=== PATIENT | female | born 1985 | race Caucasian/White ===

== ENCOUNTER 2016-09-21 12:16 | Emergency (ER) | payer OTHER ==
[2016-09-21 12:38] VITALS: BP 141/91
--- NOTE | 2016-09-21 14:24 | EDM.PDOC ---
ED HPI GENERAL MEDICAL PROBLEM - General Chief Complaint: Abdominal Pain Stated Complaint: ABDOMINAL PAIN Time Seen by Provider: 09/21/16 13:13 Source of Information: Reports: Patient History Limitations: Reports: No Limitations - History of Present Illness INITIAL COMMENTS - FREE TEXT/NARRATIVE: 30-year-old female presents for evaluation treatment of severe pelvic pain. Patient reports that the pelvic pain began around 10 AM this morning. She states that she had intercourse this morning and then developed severe pelvic pain afterwards. She states that since intercourse it has been improving but has not fully resolved. Patient denies any fevers, cough, cold symptoms, nausea , vomiting, dysuria or hematuria. Patient reports that the pain is tolerable when she is laying still. Severely worsens with moving. Patient has an IUD in place. She states there is a chance issues as she has had failed control previously. Does not have a menstrual cycle on IUD. Patient has no history of any ovarian cyst. Patient reports that she is currently using [id number] medications for a yeast infection. Reports that the vaginal itching and other symptoms have resolved with the [id number] medication. Location: Reports: Pelvis lower groin area/"inner abdomen" Pain Score (Numeric/FACES): 5 - Related Data Allergies Allergy/AdvReac Type Severity Reaction Status Date / Time No Known Allergies Allergy Verified 09/21/16 12:38 Home Meds: Home Meds Lactose-Reduced Food [Protein Nutritional Shake] 1 dose PO BID 09/21/16 [History ] Past Medical History - Past Health History Medical/Surgical History: Denies Medical/Surgical History Respiratory History: Reports: Asthma Psychiatric History: Reports: Anxiety, Bipolar, Depression Social & Family History - Family History Family Medical History: Noncontributory - Tobacco Use Smoking Status *Q: Current Every Day Smoker Years of Tobacco use: 1 Packs/Tins Daily: 0.2 - Caffeine Use Caffeine Use: Reports: Energy Drinks, Soda - Recreational Drug Use Recreational Drug Use: No ED ROS GENERAL - Review of Systems Review Of Systems: See Below Constitutional: Denies: Fever HEENT: Denies: Ear Pain, Throat Pain Respiratory: Denies: Cough GI/Abdominal: Denies: Abdominal Pain, Nausea, Vomiting : Reports: Pain (pelvis). Denies: Dysuria, Hematuria ED EXAM, RENAL/ - Physical Exam Exam: See Below Exam Limited By: No Limitations General Appearance: Alert, WD/WN, Moderate Distress Respiratory/Chest: No Respiratory Distress, Lungs Clear, Normal Breath Sounds Cardiovascular: Normal Peripheral Pulses, Regular Rate, Rhythm, No Murmur GI/Abdominal: Normal Bowel Sounds, Soft, Non-Tender (Female) Exam: Normal External Exam, Normal Speculum Exam Neurological: Alert, Oriented, Normal Cognition, Abnormal Gait (patient is walking hunched over due to the pain) Psychiatric: Normal Affect, Normal Mood Skin Exam: Warm, Dry, Normal Color Course - Vital Signs Last Recorded V/S: Last Vital Signs Temp 36.7 C 09/21/16 12:33 Pulse 81 09/21/16 12:33 Resp 18 09/21/16 12:33 BP 141/91 H 09/21/16 12:33 Pulse Ox 100 09/21/16 12:33 - Orders/Labs/Meds Labs: Laboratory Tests 09/21/16 09/21/16 09/21/16 Range/Units 13:20 13:20 13:50 WBC 7.30 (3.98-10.04) K/mm3 RBC 5.10 (3.98-5.22) M/mm3 Hgb 15.3 (11.2-15.7) gm/L Hct 45.2 H (34.1-44.9) % MCV 88.6 (79.4-94.8) fl MCH 30.0 (25.6-32.2) pg MCHC 33.8 (32.2-35.5) g/dl RDW Std Deviation 40.2 (36.4-46.3) fL Plt Count 227 (182-369) K/mm3 MPV 9.9 (9.4-12.3) fl Neut % (Auto) 64.1 (34.0-71.1) % Lymph % (Auto) 28.5 (19.3-51.7) % [place] % (Auto) 4.9 (4.7-12.5) % Eos % (Auto) 2.3 (0.7-5.8) Baso % (Auto) 0.1 (0.1-1.2) % Neut # (Auto) 4.67 (1.56-6.13) K/mm3 Lymph # (Auto) 2.08 (1.18-3.74) K/mm3 [place] # (Auto) 0.36 (0.24-0.36) K/mm3 Eos # (Auto) 0.17 (0.04-0.36) K/mm3 Baso # (Auto) 0.01 (0.01-0.08) K/mm3 Manual Slide Review Not Reportable Sodium 141 (136-145) mEq/L Potassium 3.7 (3.5-5.1) mEq/L Chloride 105 (98-107) mEq/L Carbon Dioxide 28 (21-32) mEq/L Anion Gap 11.7 (5-15) BUN 10 (7-18) mg/dL Creatinine 0.8 (0.55-1.02) mg/dL Est Cr Clr Drug Dosing 92.53 mL/min Estimated GFR (MDRD) > 60 (>60) mL/min BUN/Creatinine Ratio 12.5 L (14-18) Glucose 91 (74-106) mg/dL Calcium 8.8 (8.5-10.1) mg/dL Total Bilirubin 0.7 (0.2-1.0) mg/dL AST 19 (15-37) U/L ALT 27 (14-59) U/L Alkaline Phosphatase 66 (46-116) U/L C-Reactive Protein < 0.2 (<1.0) mg/dL Total Protein 7.2 (6.4-8.2) g/dl Albumin 3.7 (3.4-5.0) g/dl Globulin 3.5 gm/dL Albumin/Globulin Ratio 1.1 (1-2) HCG, Quant < 1.0 mIU/mL Urine Color Light yellow (Yellow) Urine Appearance Clear (Clear) Urine pH 7.0 (5.0-8.0) Ur Specific [place] 1.020 (1.005-1.030) Urine Protein Negative (Negative) Urine Glucose (UA) Negative (Negative) Urine Ketones Negative (Negative) Urine Occult Blood Negative (Negative) Urine Nitrite Negative (Negative) Urine Bilirubin Negative (Negative) Urine Urobilinogen 0.2 (0.2-1.0) Ur Leukocyte Esterase Negative (Negative) Urine RBC Not seen (0-5) /hpf Urine WBC Not seen (0-5) /hpf Urine WBC Clumps Not seen (NOT SEEN) /hpf Ur Epithelial Cells 0-5 (0-5) /hpf Urine Bacteria Rare (FEW) /hpf Urine Mucus Not seen (FEW) /hpf Urine Yeast Not seen (NOT SEEN) - Radiology Interpretation Free Text/Narrative:: Transvaginal ultrasound impression per [facility]: 1. Probable right ovarian hemorrhagic cyst. 2. Apparent IUD. Low-lying position not excludable. - Re-Assessments/Exams Free Text/Narrative Re-Assessment/Exam: 09/21/16 15:00 Labs returned. White blood cell count 7.30, hemoglobin 15.3 and platelets are 227. Sodium is 141, potassium 3.7 chloride 105. Anion gap 11.7. CRP is within normal limits at less than 0.2. HCG is negative at less than 1.0. UA Is negative for any blood, leukocytes, nitrites, ketones reporting. Feel the patient likely has an ovarian cyst. We will order transvaginal ultrasound to further evaluate. 09/21/16 16:34 wet prep negative for yeast, clue cells and trich. Offered STD testing the and patient declined. I reviewed the ultrasound results with the patient. She is hemodynamically stable and her hemoglobin is within normal limits. I do not feel that she needs surgery for her hemorrhagic cystitis at this time. We will have her followed closely with either her primary care provider or a local ELECTRIC RE[employer]IGERATOR SERVICER here. Patient sees an ELECTRIC REFRIGERATOR SERVICER provider in [place]. Offered medication for pain. Patient declined. She would like to utilize [id number] Tylenol and Motrin. She was instructed to return to the ER immediately for symptoms change or worsen. Departure - Departure Time of Disposition: 16:34 Disposition: Home, Self-Care 01 Condition: Fair Clinical Impression: Hemorrhagic cyst of right ovary - Discharge Information Instructions: Ovarian Cyst, [id number] Referrals: PCP,None [Primary Care Provider] - Eboni Sanz MD [Ordering Only Provider] - Aniceto Griffin MD [Physician] - Forms: ED Department Discharge Additional Instructions: Follow-up with Ob Friday or Friday this week. If you are unable to see your normal OB recommend Dr. Griffin or Dr. Huntley at [facility] in [place]. Call to schedule with one of them. OTC tylenol or motrin as needed for pain relief. May try heat for additional pain relief. Rest. Drink plenty of fluids. Please return to the ER should your symptoms change or worsen.
--- NOTE | 2016-09-23 14:38 | US ---
Pelvic ultrasound: Multiple real-time images were obtained transvaginally. Comparison: No previous pelvic ultrasound. Findings: Hyperechoic area is seen within the lower body and lower uterine uterine segment likely representing IUD. No myometrial abnormality is seen. Endometrial thickness is 4 mm. Complex area noted within the right ovary measuring 2.2 cm which is felt to be physiologic. Follicles are seen within the ovaries. Small amount of free fluid seen which is felt to be incidental. Impr measurements: Uterus: Length 7.2 cm, AP height 3.9 cm, transverse width 5.0 cm Right ovary: 4.1 x 2.5 x 2.9 cm Left ovary: 2.4 x 1.2 x 1.2 cm Impression: 1. Presumed IUD within the lower endometrial cavity. This appears lower in position than usually expected for IUD. 2. Complicated 2.2 cm cyst within the right ovary which is felt to be incidental and physiologic. 3. Other incidental findings. Diagnostic code #3 I agree with preliminary report issued by [facility] ([facility] preliminary report dictated on 09/21/16, 5:04 PM Central Time)
== END 2016-09-21 16:50 | disposition home or self-care (01) ==
LOC: JD.ED 12:16
DX: N83.201 Unspecified ovarian cyst, right side (principal); F17.210 Nicotine dependence, cigarettes, uncomplicated; F41.9 Anxiety disorder, unspecified; F31.9 Bipolar disorder, unspecified; J45.909 Unspecified asthma, uncomplicated
CPT/HCPCS: 36415; 76830; 76830-26; 80053; 81001; 84702; 85025; 86140; 87210; 87808; 99283; 99284-25

== ENCOUNTER 2019-07-04 14:44 | Emergency (ER) | payer BC, OTHER ==
[2019-07-04 15:19] VITALS: BP 142/93; PULSE 65
[2019-07-04] MEDS ORDERED: Diphtheria,Pertussis(Acell),Tetanus Vaccine 0.5 ML Syringe IM ONE (15:27)
[2019-07-04] MEDS ORDERED: Lidocaine 1% 10 ML MDV INJECT ONE (15:28)
--- NOTE | 2019-07-04 15:33 | EDM.PDOC ---
ED HPI GENERAL MEDICAL PROBLEM - General Chief Complaint: Laceration Stated Complaint: RIGHT PALM LACERATION Time Seen by Provider: 07/04/19 15:18 Source of Information: Reports: Patient, RN Notes Reviewed History Limitations: Reports: No Limitations - History of Present Illness INITIAL COMMENTS - FREE TEXT/NARRATIVE: Patient is a 33-year-old female who presents to the ED for the evaluation of a right palm laceration. This does involve her thenar eminence of her right hand. The laceration itself is linear, fairly superficial and non-gaping, runs in a vertical fashion, and is roughly 3 cm in length. Patient states she was at home, and went to open some of her older windows on her home, when her head went through the glass instead. Patient is not sure of her last tetanus vaccination as well. Patient is not having any numbness or tingling distal to the injury, and she can move all fingers and wrist in range of motion. Right Hand Pain Score (Numeric/FACES): 5 - Related Data Allergies Allergy/AdvReac Type Severity Reaction Status Date / Time No Known Allergies Allergy Verified 07/04/19 15:18 Home Meds: Home Meds Lactose-Reduced Food [Protein Nutritional Shake] 1 dose PO BID 09/21/16 [History ] Melatonin 5 mg PO BEDTIME 07/04/19 [History] Past Medical History Cardiovascular History: Reports: Hypertension Respiratory History: Reports: Asthma Psychiatric History: Reports: Anxiety, Bipolar, Depression - Infectious Disease History Infectious Disease History: Reports: Chicken Pox - Past Surgical History Female Surgical History: Reports: Tubal Ligation Social & Family History - Family History Family Medical History: Noncontributory - Tobacco Use Smoking Status *Q: Former Smoker Used Tobacco, but Quit: Yes Month/Year Tobacco Last Used: 01/2019 - Caffeine Use Caffeine Use: Reports: Energy Drinks - Recreational Drug Use Recreational Drug Use: No ED ROS GENERAL - Review of Systems Review Of Systems: Comprehensive ROS is negative, except as noted in HPI. ED EXAM, SKIN/RASH Exam: See Below Exam Limited By: No Limitations General Appearance: Alert, WD/WN, No Apparent Distress Respiratory/Chest: No Respiratory Distress, Lungs Clear, Normal Breath Sounds, No Accessory Muscle Use, Chest Non-Tender Cardiovascular: Normal Peripheral Pulses, Regular Rate, Rhythm, No Murmur Peripheral Pulses: 3+: Radial (L), Radial (R) Neurological: Alert, Oriented, CN II-XII Intact (grossly), Normal Cognition, No Motor/Sensory Deficits Psychiatric: Normal Affect, Normal Mood Skin: Warm, Dry, Normal Color, No Rash, Wound/Incision (3 cm linear laceration to the right thenar eminence of the patient's hand. This runs vertical in nature, fairly superficial, non-gaping, not actively bleeding. No neurovascular injury is suspected at this time) ED SKIN PROCEDURES - Laceration/Wound Repair Right Anterior Proximal Hand Appearance: Superficial, Linear, Clean Distal NVT: Neuro & Vascular Intact, No Tendon Injury Anesthetic Type: Local Local Anesthesia - Lidocaine (Xylocaine): 1% Plain Local Anesthetic Volume: 5cc Skin Prep: Chlorhexidine (Hibiciens), Saline Closed with: Sutures Lac/Wound length In cm: 3 Suture Size: 4-0 # of Sutures: 5 Suture Type: Prolene, Interrupted, Simple Sterile Dressing Applied: Nurse Tetanus Status Addressed: Yes (updated at today's visit) Complications: No Course - Vital Signs Last Recorded V/S: Last Vital Signs Temp 98.2 F 07/04/19 15:16 Pulse 65 07/04/19 15:16 Resp 19 07/04/19 15:16 BP 142/93 H 07/04/19 15:16 Pulse Ox 100 07/04/19 15:16 - Orders/Labs/Meds Orders: Active Orders 24 hr Category Date Time Status Vaccines to be Administered [RC] PER UNIT ROUTINE Care 07/04/19 15:28 Ordered Meds: Medications Discontinued Medications Generic Name Dose Route Start Last Admin Trade Name Freq PRN Reason Stop Dose Admin Diphtheria/Tetanus/Acell Pertussis 0.5 ml 07/04/19 15:27 07/04/19 15:36 Adacel IM 07/04/19 15:28 0.5 ml .ONCE ONE Administration Lidocaine HCl 10 ml 07/04/19 15:28 07/04/19 15:36 Xylocaine 1% INJECT 07/04/19 15:29 10 ml ONETIME ONE Administration Departure - Departure Time of Disposition: 15:31 Disposition: Home, Self-Care 01 Condition: Fair Clinical Impression: Laceration of right palm without complication Qualifiers: Encounter type: initial encounter Qualified Code(s): S61.411A - Laceration without foreign body of right hand, initial encounter - Discharge Information *PRESCRIPTION DRUG MONITORING PROGRAM REVIEWED*: No *COPY OF PRESCRIPTION DRUG MONITORING REPORT IN PATIENT [facility]: No Instructions: Sutured Wound Care, [id number] Referrals: PCP,None [Primary Care Provider] - Forms: ED Department Discharge Additional Instructions: You have been evaluated in the ED for your laceration. Sutures will need to stay in for 10-14 days (07/13-07/17). You may return to the ED or any clinic for removal. Please keep this area clean and dry, you may cleanse with regular soap and water. No vigorous scrubbing. Watch out for signs of infection like increased redness, swelling, pain at the laceration site, or if you should develop any fevers or chills. Please return to ED if your symptoms change or worsen. Sepsis Event Note - Evaluation Sepsis Screening Result: No Definite Risk - Focused Exam Vital Signs: Vital Signs Temp Pulse Resp BP Pulse Ox 07/04/19 15:16 98.2 F 65 19 142/93 H 100 Date Exam was Performed: 07/04/19 Time Exam was Performed: 16:21 - My Orders Last 24 Hours: My Active Orders 07/04/19 15:28 Vaccines to be Administered [RC] PER UNIT ROUTINE - Assessment/Plan Last 24 Hours: My Active Orders 07/04/19 15:28 Vaccines to be Administered [RC] PER UNIT ROUTINE
== END 2019-07-04 16:27 | disposition home or self-care (01) ==
LOC: JD.ED 14:44
DX: S61.411A Laceration without foreign body of right hand, initial encounter (principal); Z23 Encounter for immunization; Z87.891 Personal history of nicotine dependence; F31.9 Bipolar disorder, unspecified; F41.9 Anxiety disorder, unspecified; I10 Essential (primary) hypertension; J45.909 Unspecified asthma, uncomplicated; W25.XXXA Contact with sharp glass, initial encounter; Y92.009 Unspecified place in unspecified non-institutional (private) residence as the place of occurrence of the external cause
CPT/HCPCS: 12002; 90471; 90715; 99282; J2001

== ENCOUNTER 2020-05-29 12:04 | Emergency (ER) | payer BC ==
[2020-05-29] MEDS ORDERED: diphenhydrAMINE 50 MG/ML SDV IVPUSH PRN (13:06)
[2020-05-29] MEDS ORDERED: EPINEPHrine 1 MG/ML SDV IM PRN (13:06)
[2020-05-29] MEDS ORDERED: Casirivimab 1,200 MG, Imdevimab 1,200 MG in Sodium Chloride 0.9% 230 ML IV ONE (13:06)
[2020-05-29] MEDS ORDERED: methylPREDNISolone Sodium Succinate 125 MG/2 ML SDV IVPUSH PRN (13:06)
[2020-05-29] MEDS ORDERED: Famotidine 20 MG/2 ML SDV IVPUSH PRN (13:06)
[2020-05-29] MEDS ORDERED: hydrALAZINE 20 MG/ML SDV IVPUSH ONE (13:07)
--- NOTE | 2020-05-29 13:07 | EDM.PDOC ---
ED HPI GENERAL MEDICAL PROBLEM - General Chief Complaint: Flank Pain Stated Complaint: COVID SX Time Seen by Provider: 05/29/20 12:55 Source of Information: Reports: Patient History Limitations: Reports: No Limitations - History of Present Illness INITIAL COMMENTS - FREE TEXT/NARRATIVE: 34-year-old female attends the ED with recent diagnosis of COVID-19 illness. Chief complaint is that of diffuse headache ache in the back of her neck low back and thighs. She has a very minimal dry cough. Mild nasal congestion. She has retention of first sense of taste and smell. All of her children have been ill with Covid-like 19 illness for the last week with mostly nasal congestion loss of sense of taste and smell. Her is also diagnosed with COVID-19 illness 2 days ago and he was exposed to a coworker with COVID-19 illness that is suspect case that introduced it to her family. She has had symptoms dating back to May 25. So is her . Overall she does not feel all that bad. Initially had more of a headache and diffuse myalgias with some chills but no defined fever. No GI symptoms of nausea vomiting or diarrhea. Fatigue would be her chief complaint. Onset: Gradual Onset Date: 05/25/20 (Feels she developed for symptoms of COVID-19 illness last , May 25.) Duration: Day(s):, Getting Worse Location: Reports: Head, Neck (Mild headache), Back ( pain in her neck musculature low back musculature and thighs.) Quality: Reports: Ache Severity: Moderate Improves with: Reports: None (Aches such as ibuprofen or Aleve or Tylenol.) Worsens with: Reports: Movement (Stiven and movement seems to make) Context: Reports: Other (Of a 19 illness with fatigue generalized myalgia in her large muscles). Denies: Activity, Exercise ( the pain a little worse.), Lifting, Sick Contact, Trauma Associated Symptoms: Reports: Cough, Fever/Chills, Loss of Appetite, Malaise (Minimal cough.), Weakness (Chief complaint would be fatigue.), Other (No diarrhea). Denies: Confusion, Chest Pain, cough w sputum, Diaphoresis, Headaches, Nausea/Vomiting (Initial onset of illness for 3 days.), Rash, Seizure, Shortness of Breath, Syncope Treatments INCOME TAX EXPERT: Reports: Other (see below) Bilateral Flank Pain Score (Numeric/FACES): 6 - Related Data Allergies Allergy/AdvReac Type Severity Reaction Status Date / Time No Known Allergies Allergy Verified 05/29/20 12:31 Home Meds: Home Meds Aspirin [[place] Aspirin] 81 mg PO DAILY 05/29/20 [History] Valsartan 160 mg PO DAILY #30 tablet 05/29/20 [Rx] amLODIPine Besylate [Amlodipine Besylate] 10 mg PO DAILY #30 tablet 05/29/20 [Rx] Past Medical History - Past Health History Medical/Surgical History: Denies Medical/Surgical History Cardiovascular History: Reports: Hypertension (Already controlled. Used to be on medication but has not been on medication for several months.) Respiratory History: Reports: Asthma Psychiatric History: Reports: Anxiety, Bipolar, Depression - Infectious Disease History Infectious Disease History: Reports: Chicken Pox, Novel Coronavirus - Past Surgical History Female Surgical History: Reports: Tubal Ligation Social & Family History - Family History Family Medical History: No Pertinent Family History - Tobacco Use Tobacco Use Status *Q: Former Tobacco User Used Tobacco, but Quit: Yes Month/Year Tobacco Last Used: 2 years ago - Caffeine Use Caffeine Use: Reports: Coffee - Recreational Drug Use Recreational Drug Use: No - Living Situation & Occupation Living situation: Reports: Occupation: Unemployed (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 They are ages 1514 9 and 8.) ED ROS GENERAL - Review of Systems Review Of Systems: See Below Constitutional: Reports: Fever, Chills, Malaise, Weakness, Fatigue, Decreased Appetite HEENT: Reports: Glasses Respiratory: Reports: Shortness of Breath, Cough (Very mildly short of breath.). Denies: Wheezing, Pleuritic Chest Pain, Sputum, Hemoptysis ( Nonproductive cough again very minimal) Cardiovascular: Reports: Blood Pressure Problem. Denies: Chest Pain ED EXAM,LOWER BACK PAIN/INJURY - Physical Exam Exam: See Below Exam Limited By: No Limitations General Appearance: Alert, WD/WN, No Apparent Distress, Other (Temperature is 36.2 with heart rate of 86 and sinus respiratory rate 16 with O2 sats of 98% room air BP is elevated 176/133.) Eye Exam: Bilateral Eye: Normal Inspection (No blepharal pallor or scleral icterus.), PERRL Ears: Normal TMs Throat/Mouth: Normal Oropharynx, Other (Tongue is slightly dry.) Head: Atraumatic, Normocephalic (No oropharyngeal infection.) Neck: Normal Inspection, Supple, Non-Tender, Full Range of Motion. No: Lymphadenopathy (L), Lymphadenopathy (R) Respiratory/Chest: No Respiratory Distress, Lungs Clear, Normal Breath Sounds Cardiovascular: Normal Peripheral Pulses, Regular Rate, Rhythm, No Edema, No Gallop, No Murmur, No Rub GI/Abdominal: Normal Bowel Sounds, Soft, Non-Tender, No Organomegaly, No Mass, Pelvis Stable, Other (Moderately obese. Abdominal girth limits ability to palpate solid organs.) Back Exam: Normal Inspection, Full Range of Motion. No: CVA Tenderness (L), CVA Tenderness (R) Extremities: Normal Inspection, Normal Range of Motion, Non-Tender, No Pedal Edema Neurological: Alert, Normal Mood/Affect, Normal Dorsiflexion, CN II-XII Intact, Oriented x 3 Psychiatric: Normal Affect, Normal Mood Skin Exam: Warm, Dry, Intact, Normal Color, No Rash Course - Vital Signs Last Recorded V/S: Last Vital Signs Temp 36.2 C 05/29/20 17:05 Pulse 102 H 05/29/20 17:05 Resp 16 05/29/20 17:05 BP 171/102 H 05/29/20 17:05 Pulse Ox 99 05/29/20 17:05 - Orders/Labs/Meds Labs: Laboratory Tests 05/29/20 05/29/20 05/29/20 Range/Units 13:57 13:57 13:57 WBC 6.97 (3.98-10.04) K/mm3 RBC 5.73 H (3.98-5.22) M/mm3 Hgb 15.3 (11.2-15.7) gm/dl Hct 47.7 H (34.1-44.9) % MCV 83.2 D (79.4-94.8) fl MCH 26.7 (25.6-32.2) pg MCHC 32.1 L (32.2-35.5) g/dl RDW Std Deviation 41.5 (36.4-46.3) fL Plt Count 327 D (182-369) K/mm3 MPV 9.1 L (9.4-12.3) fl Neut % (Auto) 55.6 (34.0-71.1) % Lymph % (Auto) 35.6 (19.3-51.7) % [place] % (Auto) 6.7 (4.7-12.5) % Eos % (Auto) 1.7 (0.7-5.8) Baso % (Auto) 0.3 (0.1-1.2) % Neut # (Auto) 3.87 (1.56-6.13) K/mm3 Lymph # (Auto) 2.48 (1.18-3.74) K/mm3 [place] # (Auto) 0.47 H (0.24-0.36) K/mm3 Eos # (Auto) 0.12 (0.04-0.36) K/mm3 Baso # (Auto) 0.02 (0.01-0.08) K/mm3 Hemoglobin A1c ( - 5.6) % Magnesium 2.1 (1.8-2.4) mg/dl Lactate Dehydrogenase 190 (81-234) U/L Troponin I < 0.017 (0.00-0.056) ng/mL C-Reactive Protein 1.3 H* (<1.0) mg/dL NT-Pro-B Natriuret Pep 38 (0-125) pg/mL 05/29/20 Range/Units 13:57 WBC (3.98-10.04) K/mm3 RBC (3.98-5.22) M/mm3 Hgb (11.2-15.7) gm/dl Hct (34.1-44.9) % MCV (79.4-94.8) fl MCH (25.6-32.2) pg MCHC (32.2-35.5) g/dl RDW Std Deviation (36.4-46.3) fL Plt Count (182-369) K/mm3 MPV (9.4-12.3) fl Neut % (Auto) (34.0-71.1) % Lymph % (Auto) (19.3-51.7) % [place] % (Auto) (4.7-12.5) % Eos % (Auto) (0.7-5.8) Baso % (Auto) (0.1-1.2) % Neut # (Auto) (1.56-6.13) K/mm3 Lymph # (Auto) (1.18-3.74) K/mm3 [place] # (Auto) (0.24-0.36) K/mm3 Eos # (Auto) (0.04-0.36) K/mm3 Baso # (Auto) (0.01-0.08) K/mm3 Hemoglobin A1c 5.8 H ( - 5.6) % Magnesium (1.8-2.4) mg/dl Lactate Dehydrogenase (81-234) U/L Troponin I (0.00-0.056) ng/mL C-Reactive Protein (<1.0) mg/dL NT-Pro-B Natriuret Pep (0-125) pg/mL Meds: Medications Discontinued Medications Generic Name Dose Route Start Last Admin Trade Name Freq PRN Reason Stop Dose Admin Amlodipine Besylate 10 mg 05/29/20 14:33 05/29/20 15:26 Norvasc PO 05/29/20 14:34 10 mg ONETIME ONE Administration Diphenhydramine HCl 50 mg 05/29/20 13:06 Benadryl IVPUSH ONETIME PRN hypersensitivity reaction Enalaprilat 1.25 mg 05/29/20 14:32 05/29/20 15:25 Vasotec Iv IVPUSH 05/29/20 14:33 1.25 mg ONETIME ONE Administration Epinephrine HCl 0.3 mg 05/29/20 13:06 Adrenalin IM ONETIME PRN hypersensitivity reaction Famotidine 20 mg 05/29/20 13:06 Pepcid IVPUSH ONETIME PRN hypersensitivity reaction Hydralazine HCl 10 mg 05/29/20 13:07 05/29/20 15:16 Apresoline IVPUSH 05/29/20 13:08 10 mg ONETIME ONE Administration Non-Formulary Medication 1,200 250 mls @ 250 mls/hr 05/29/20 13:06 05/29/20 13:53 mg/ Non-Formulary Medication IV 05/29/20 14:05 250 mls/hr 1,200 mg/ Sodium Chloride ONETIME ONE Administration Methylprednisolone Sodium Succinate 125 mg 05/29/20 13:06 Solu-Medrol IVPUSH ONETIME PRN hypersensitivity reaction Sodium Chloride 30 ml 05/29/20 13:15 05/29/20 16:05 Saline Flush FLUSH 30 ml ASDIRECTED DRE Administration - Radiology Interpretation Free Text/Narrative:: 34-year-old female presents to the ED with recent diagnosis of COVID-19 illness. She believes she has been sick for about 4 to 5 days. All of her four children seem to have colds and nasal congestion at about the same time as her came down with illness last week. She has mild headache at present. Loss of appetite but no diarrhea or nausea or vomiting. Large muscle groups ache such as back of her head low back and thighs. Her risk factors for your exacerbation of COVID-19 illness are obesity with a BMI of 49.8 and uncontrolled hypertension. She is therefore a candidate for Regeneron and she is willing to accept this medication and has read the information sheet provided to her. I have spoke with the patient Wendy Marin to provide information about Regeneron treatment for herself. I offered herself in the [place] Regeneron fax sheet to read and review. Stated the drug has been approved by an emergency use authorization process but is not been fully vetted by the FDA. The patient meets the EUA requirements. I discussed there are other potential treatment options that are currently not FDA approved to treat COVID-19 illness. Offered opportunity ask questions and all questions were answered. The patient Wendy Marin voiced understanding and agreed to proceed with treatment for herself. - Re-Assessments/Exams Free Text/Narrative Re-Assessment/Exam: 05/29/20 13:42 chest x-ray done portably reveals heart size to me and mediastinum are normal. Lungs are clear with no acute parenchymal changes. No acute osseous findings either. No previous x-rays are available for comparison purposes. 05/29/20 14:33 Blood pressure remains markedly elevated at 170/105 even after hydralazine 10 mg IV. I am therefore going to give her Vasotec 1.25 mg IV and amlodipine 10 mg orally. Otology is back revealing a normal white count at 6.97. The differential shows 55.6% neutrophils. Hemoglobin is 15.3 with hematocrit of 47.7 platelet count 327,000 05/29/20 14:58 Magnesium is 2.1 LDH is 190 troponin I is less than 0.017 C- reactive protein 1.3 with a BNP of 38. 02/22/21 16:50: Patient was complaining to the nurse that she had developed some right anterior chest wall pain. She did not have it before she came into the ED. On examination lungs sound clear. She has point tenderness over palpation of the rib #3 4 and 5 in the midclavicular line on the right side. This will be treated conservatively with Aleve 2 tablets every 8 hours to reduce pain and inflammation.She has otherwise tolerated Regeneron IV therapy with no problems.She will return to care if dyspnea worsens. Departure - Departure Time of Disposition: 16:54 Disposition: Home, Self-Care 01 Condition: Fair Clinical Impression: COVID-19, Uncontrolled hypertension, stage 1 - Discharge Information *PRESCRIPTION DRUG MONITORING PROGRAM REVIEWED*: Not Applicable *COPY OF PRESCRIPTION DRUG MONITORING REPORT IN PATIENT [facility]: Not Applicable Prescriptions: amLODIPine Besylate [Amlodipine Besylate] 10 mg PO DAILY #30 tablet Valsartan 160 mg PO DAILY #30 tablet Instructions: COVID-19 Frequently Asked Questions, What You Should Know About COVID-19 to Protect Yourself and Others - CDC, COVID-19: Quarantine vs. Isolation - CDC, Managing Your Hypertension Referrals: PCP,None [Primary Care Provider] - Forms: ED Department Discharge Additional Instructions: Evaluation in the emergency room today in regards to recent diagnosis of COVID- 19 illness which is afflicted your entire family. You were at slightly higher increased risk of developing more severe disease due to uncontrolled high blood pressure and your weight. For this reason you are a candidate for Regeneron which is to monoclonal antibodies that give you immediate antibodies to the COVID-19 virus in the hopes that will stave off more serious disease. Chest x- ray done through the ED today was completely normal. Labs done through the ED were also within normal limits as well. Your blood pressure proved to be a bit of a problem and bringing under control. You received hydralazine 10 mg IV followed by Vasotec 1.25 mg IV and amlodipine 10 mg by mouth. You will need to take amlodipine 10 mg every night at bedtime and valsartan every day in the morning for blood pressure control. Suggest follow-up with personal care provider or if you do not have 1 suggest follow-up with Dr. Camille Oneal in the family medicine unit here in the hospital. Ideally follow-up should be carried out within the next 2 weeks. Please phone [phone] to arrange an appointment. You are considered contagious from the first day of illness for up to 10 days due to spread of the virus primarily through secretions. Currently you appear to be on day 4 or 5 of illness and likely should quarantine for another 7 days. Suggest Aleve 2 tablets every 8 hours to reduce pain in the chest and or fever and diarrhea generalized body aches particularly in the neck and lower back muscles. Blood pressure at the time of discharge is down to 166/95. This is still not normal it should be less than 140 on the top and less than 85 in the bottom for you. It would be useful if you check your blood sugar outside of the hospital or clinic situation and write down the numbers so that we can identify whether or not we have reached target treatment. Sepsis Event Note (ED) - Evaluation Sepsis Screening Result: No Definite Risk
[2020-05-29] MEDS ORDERED: Sodium Chloride 0.9% 10 ML Syringe FLUSH SCH (13:15)
--- NOTE | 2020-05-29 13:33 | CR ---
Chest: Portable view of the chest was obtained. Comparison: No previous chest imaging is available. Heart size and mediastinum are normal. Lungs are clear with no acute parenchymal change. No acute osseous finding is seen. Impression: 1. Nothing acute is seen on portable chest x-ray. Diagnostic code #1
[2020-05-29] MEDS ORDERED: Enalaprilat 1.25 MG/ML SDV IVPUSH ONE (14:32)
[2020-05-29] MEDS ORDERED: amLODIPine 10 MG Tab PO ONE (14:33)
[2020-05-29 15:07] LABS: HEMOGLOBIN A1C 5.8 %
[2020-05-29 17:38] VITALS: BP 171/102; PULSE 102
== END 2020-05-29 17:05 | disposition home or self-care (01) ==
LOC: JD.ED 12:04
DX: U07.1 COVID-19 (principal); I10 Essential (primary) hypertension; J45.909 Unspecified asthma, uncomplicated; Z79.82 Long term (current) use of aspirin; Z87.891 Personal history of nicotine dependence
CPT/HCPCS: 36415; 71045; 83036; 83615; 83735; 83880; 84484; 85025; 86140; 96374; 96375; 99284; A9270; J0360; J7050; Q0243; M0243